=== PATIENT | female | born 1945 | race Caucasian/White ===

== ENCOUNTER 2022-10-08 20:23 | Emergency (ER) | payer MEDICARE ==
[~2022-10-08] VITALS: Ht 160 cm; Wt 60.8 kg
[2022-10-08 21:59] LABS: CREATININE 1.1 mg/dL (0.5-1.5); POTASSIUM 3.4 mmol/L (3.5-5.1)
[2022-10-08 22:04] LABS: ALBUMIN 3.5 g/dL (3.5-5.0); TOTAL PROTEIN, SERUM 7.6 g/dL (6.0-8.3)
[2022-10-08] MEDS ORDERED: NIRM1TAB PO (22:06)
[2022-10-08 22:32] VITALS: BP 140/73
== END 2022-10-08 22:38 | disposition home or self-care (01) ==
LOC: EDH 20:23
DX: U07.1 COVID-19 (principal); I10 Essential (primary) hypertension; Z79.899 Other long term (current) drug therapy
CPT/HCPCS: 99283; 87635; 80053; 87804 ×2; 36415; C9803